=== PATIENT | male | born 1950 | race Caucasian/White ===

== ENCOUNTER 2018-08-28 08:35 | Emergency (ER) | payer OTHER ==
[2018-08-28] MEDS ORDERED: NS 0.9% 1000 ML** 1,000 ML IV ONE ×2 (09:11→09:55)
[2018-08-28 09:30] LABS: ABS Basophils 0.1 10^3/ul (0-0.2); ABS Eosinophils 0.1 10^3/ul (0-0.6); ABS Lymphocytes 1.5 10^3/ul (1.0-4.8); ABS Monocytes 0.7 10^3/ul (0-0.8); ABS Neutrophils 8.6 10^3/ul (1.5-7.7); Eosinophil % 0.8 %; Hematocrit 42 % (42-52); Hemoglobin 14.4 g/dL (14.0-18.0); Mean Corpuscular HGB Conc 34 g/dL (31-36); Mean Corpuscular Hemoglobin 31 pg (27-31); Mean Corpuscular Volume 91 fL (80-94); Mean Platelet Volume 6.8 fL (7.4-10.4); Platelet Count 305 10^3/uL (150-450); Red Blood Count 4.61 10^6 /uL (4.18-5.48); Red Cell Distribution Width 15 % (10-15)
[2018-08-28 09:38] LABS: Activated Partial Thrombo Time 36.5 seconds (26.0-38.0); INR 1.15 (0.82-1.09)
[2018-08-28 09:45] LABS: ALT 15 U/L (7-52); AST 14 U/L (13-39); Albumin 3.6 g/dL (3.2-5.2); Albumin/Globulin Ratio 1.1 (1-3); Alkaline Phosphatase 221 U/L (34-104); BUN/Creatinine Ratio 12.6 (8-20); Blood Urea Nitrogen 12 mg/dL (6-24); Calcium 9.1 mg/dL (8.6-10.3); Chloride 105 mmol/L (101-111); Creatine Kinase 29 U/L (10-223); EGFR Non-African American 79.3 (>60); Globulin 3.2 g/dL (2-4); Glucose 177 mg/dL (70-100); Magnesium 2.4 mg/dL (1.9-2.7); Potassium 3.6 mmol/L (3.5-5.0); Sodium 137 mmol/L (135-145); Total Protein 6.8 g/dL (6.4-8.9)
--- NOTE | 2018-08-28 09:46 | ED ---
Neurological HPI - HPI Summary HPI Summary: Pt is a 67 y/o M presenting to the ED brought in by EMS for seizures. LEVEL 5 CAVEAT: Pts full hx and physical are unobtainable d/t AMS. On the way here, the pt had a witnessed 30sec seizure which EMS gave 5mg Versed for. The pt was incontinent, and it is unknown if he hit his head. It is unknown who called EMS. No family or friends were on site with EMS. RN and pharmacy technician per diem in ED attempted to obtain pt's home medications, which pt does not know, and does not carry a list, however pt gets his care at the [facility], and no medication list was returned by the [facility]. Of note, in record pt had Dilantin toxicity in the past, but unknown if pt is still on Dilantin. Vital signs while in room: HR 121 bpm, BP 95/61, O2 sat 88% with good waveform. Home Medications Medication Instructions Recorded Confirmed Type Aspirin [Aspirin Adult Low Strengt] 81 mg PO 10/11/12 10/11/12 History Cetirizine* [ZyrTEC*] 10 mg PO BEDTIME 10/11/12 10/11/12 History Flunisolide (Nasal) [Flunisolide] 0.025 % NA BID 10/11/12 10/11/12 History Flunisolide NASAL (NF) [Nasalide 1 spray .SEE ORDER BID 10/11/12 10/11/12 History NASAL (NF)] Phenytoin CAP(*) [Dilantin ER 100 mg PO TID 10/11/12 10/11/12 History CAP(*)] Simvastatin TAB(NF) [Zocor(NF)] 80 mg PO QPM 10/11/12 10/11/12 History - History of Current Complaint Chief Complaint: EDSeizure Stated Complaint: SEIZURES PER EMS Hx Obtained From: EMS Hx From Patient Unobtainable Due To: Altered Mental Status Onset/Duration: Sudden Onset, Started hours ago, Resolved Timing: Intermittent Episodes Lasting: - seconds Onset Severity: Moderate Current Severity: None Seizure Severity: Moderate Number of Seizures: 2 - one at home reported, one witnessed by EMS. Neurological Deficit Location: Generalized Pain Intensity: 0 Pain Scale Used: 0-10 Numeric Episode Lasting: Seconds/Minutes - first unknown, second 30 sec; seizure, not syncope Frequency: Episodes x___ - 2 - 1 unwitnessed, 1 witnessed by EMS Seizure Character: Generalized Aggravating: Nothing Alleviating: Medication - versed 5mg by EMS for second seizure Associated Signs and Symptoms: Positive: Confusion - post ictal, and post versed , Seizure - x2, Incontinent Bladder/Bowel TPA Considered: No - seizure, not stroke - Allergy/Home Medications Allergies/Adverse Reactions: Allergies Allergy/AdvReac Type Severity Reaction Status Date / Time No Known Allergies Allergy Verified 10/11/12 09:41 PMH/Surg Hx/FS Hx/Imm Hx Previously Healthy: No Cardiovascular History: Reports: Hx Hypercholesterolemia, Hx Peripheral Vascular Disease Respiratory History: Reports: Other Respiratory Problems/Disorders - SMOKER Sensory History: Reports: Hx Hearing Aid, Hx Hearing Problem Neurological History: Reports: Hx CVA, Hx Seizures - Surgical History Surgery Procedure, Year, and Place: RIGHT SHOULDER CUFF SX 2004. RIGHT KNEE SX 1979. RIGHT INGUINAL HERNIA REPAIR 2004 Infectious Disease History: No Infectious Disease History: Denies: Traveled Outside the [place] in Last 30 Days - Family History Family History: LEVEL 5 CAVEAT: Pts full hx and physical are unobtainable d/t AMS. Later, when more alert, states cardiac disease. - Social History Lives: Alone Alcohol Use: Rare - stated after initial HPI, during re-eval Hx Substance Use: No Substance Use Type: Reports: None - denied in 2013 record, stated later in re- eval, and supported by neg Utox, except benzos (given by EMS) Hx Tobacco Use: Yes Smoking Status (MU): Heavy Every Day Tobacco Smoker - 30 yr hx in 2013 record, stated later in re-reval, and supported by PE. Type: Cigarettes Review of Systems - ROS Summary Review of Systems Summary: LEVEL 5 CAVEAT: Pts full hx and physical are unobtainable d/t AMS. Positive: Other - confusion Positive: incontinence Neurological: Other - seizure Psychological: Other - cooperative All Other Systems Reviewed And Are Negative: No Physical Exam - Summary Physical Exam Summary: Appearance: Ill-appearing, no pain distress, well-nourished Skin: Warm, yellow fingers consistent with heavy smoking, dry Head: Yellow mcdonnell around mouth, consistent with smoking atraumatic Eyes: Conjunctiva clear ENT: Normal inspection, no tongue biting noted. Neck: Supple, no nodes, no JVD, spines nontender Respiratory: Breath sounds diminished throughout, no respiratory distress Cardio: RRR, No murmur, pulses normal, brisk capillary refill Abdomen: Soft, nontender, multiple hernias in the umbilical region. Bowel sounds: Present Musculoskeletal: Strength Intact/ROM intact, clubbing, no calf tenderness, no edema. Psychological: Minimally communicative, difficult to assess Neuro: Alert, eyes open, answers some questions appropriately, doesnt follow commands, moves upper extremities well, some moverment of lower extremities, but then drifts off to sleep, muscle tone normal, no focal deficit Triage Information Reviewed: Yes Vital Signs On Initial Exam: Initial Vitals Temp Pulse Resp BP Pulse Ox 98.2 F 118 25 81/58 88 08/28/18 08:36 08/28/18 08:36 08/28/18 08:36 08/28/18 08:36 08/28/18 08:36 Vital Signs Reviewed: Yes Completion Of Physical Exam Limited Due To: Altered Mental Status - Jesus Coma Scale Best Eye Response: 4 - Spontaneous Best Motor Response: 5 - Purposeful Movement Best Verbal Response: 4 - Confused Coma Scale Total: 13 Diagnostics - Vital Signs Vital Signs Temp Pulse Resp BP Pulse Ox 08/28/18 09:33 123 25 95/61 87 08/28/18 09:11 114 21 102/74 97 08/28/18 09:08 96 08/28/18 09:00 120 26 95 08/28/18 08:53 122 29 104/60 93 08/28/18 08:46 119 22 95 08/28/18 08:44 100/63 08/28/18 08:36 98.2 F 118 25 81/58 88 - Laboratory Lab Results: Lab Results 08/28/18 08/28/18 08/28/18 Range/Units 09:11 09:17 09:17 WBC 11.0 H (3.5-10.8) 10^3/uL RBC 4.61 (4.18-5.48) 10^6 /uL Hgb 14.4 (14.0-18.0) g/dL Hct 42 (42-52) % MCV 91 (80-94) fL MCH 31 (27-31) pg MCHC 34 (31-36) g/dL RDW 15 (10-15) % Plt Count 305 (150-450) 10^3/uL MPV 6.8 L (7.4-10.4) fL Neut % (Auto) 78.4 % Lymph % (Auto) 14.0 % Hampton % (Auto) 6.3 % Eos % (Auto) 0.8 % Baso % (Auto) 0.5 % Absolute Neuts (auto) 8.6 H (1.5-7.7) 10^3/ul Absolute Lymphs (auto) 1.5 (1.0-4.8) 10^3/ul Absolute Monos (auto) 0.7 (0-0.8) 10^3/ul Absolute Eos (auto) 0.1 (0-0.6) 10^3/ul Absolute Basos (auto) 0.1 (0-0.2) 10^3/ul Absolute Nucleated RBC 0.0 10^3/ul Nucleated RBC % 0.0 INR (Anticoag Therapy) 1.15 H (0.82-1.09) APTT 36.5 (26.0-38.0) seconds Sodium 137 (135-145) mmol/L Potassium 3.6 (3.5-5.0) mmol/L Chloride 105 (101-111) mmol/L Carbon Dioxide Pending Anion Gap Pending BUN 12 (6-24) mg/dL Creatinine 0.95 (0.67-1.17) mg/dL Est GFR ( Amer) 96.0 (>60) Est GFR (Non-Af Amer) 79.3 (>60) BUN/Creatinine Ratio 12.6 (8-20) Glucose 177 H (70-100) mg/dL Calcium 9.1 (8.6-10.3) mg/dL Magnesium 2.4 (1.9-2.7) mg/dL Total Bilirubin 0.30 (0.2-1.0) mg/dL AST 14 (13-39) U/L ALT 15 (7-52) U/L Alkaline Phosphatase 221 H (34-104) U/L Total Creatine Kinase 29 (10-223) U/L Troponin I Pending Total Protein 6.8 (6.4-8.9) g/dL Albumin 3.6 (3.2-5.2) g/dL Globulin 3.2 (2-4) g/dL Albumin/Globulin Ratio 1.1 (1-3) TSH Pending Serum Alcohol Pending Result Diagrams: 08/28/18 09:17 08/28/18 12:16 Lab Statement: Any lab studies that have been ordered have been reviewed, and results considered in the medical decision making process. - CT Brain CT CT Interpretation Completed By: Radiologist Summary of CT Findings: 1. NO EVIDENCE FOR ACUTE INTRACRANIAL ABNORMALITY. 2. FOCAL AREA OF DECREASED DENSITY IN THE POSTERIOR LEFT PARIETAL LOBE SUGGESTIVE OF ENCEPHALOMALACIA WHICH APPEARS SLIGHTLY MORE PROMINENT THAN ON THE PRIOR STUDY. RECOMMEND CLINICAL CORRELATION. ED physician has reviewed this report. - EKG 0851 Cardiac Rate: Tachycardia - 121bpm EKG Rhythm: Sinus Tachycardia ST Segment: Non-Specific Ectopy: None EKG Comparison: No Significant Change - since 10/11/12 Summary of EKG Findings: An EKG at 0851 shows sinus tachycardia at 121bpm, with nml AV/IV CT, nml QTc, and nml axis. No acute changes. No change since 10/11/12. ED MD has reviewed and interpreted this EKG. Re-Evaluation - Re-Evaluation 1st re-eval Re-Evaluation Time: 10:38 Change: Improved Comment: Pt is much more conscious now and able to give more history. He states he has not had a seizure in years because of Dilantin, but they took him off of it a couple of years back. After the first seizure this morning, he called EMS, because he had an aura that he would have another seizure. He states he awoke fully after the seizure. He currently denies STEVENS, dizziness, CP, SOB, abd pain, n /v, leg pain, edema, dysuria, burning, cough, and fever. He last drank alcohol a couple of months ago and does not use drugs, smokes more than a pack a day. He also has hernias, and he has Fhx of cardiac disease. He state that he has been off dilantin for years, currently on no anti-seizure medication. Vital signs on re-eval: HR 110bpm, BP 98/72, SaO2 91% on face mask. Course/Dx - Course Course Of Treatment: Pt is a 67 y/o M presenting to the ED brought in by EMS for seizures. LEVEL 5 CAVEAT: Pts full hx and physical are unobtainable d/t AMS. On the way here, the pt had a witnessed 30sec seizure which EMS gave 5mg Versed for. The pt was incontinent, and it is unknown if he hit his head. Vital signs while in room: HR 121 bpm, BP 95/61, O2 sat 88% with good waveform. An EKG at 0851 shows sinus tachycardia at 121bpm, with nml AV/IV CT, nml QTc, and nml axis. No acute changes. No change since 10/11/12. ED MD has reviewed and interpreted this EKG. [address] Jon about the pts present condition who will come to consult on him. 951 - I spoke with Dr. Newsome about the pt's present condition, abnormal vital signs, recurrent seizures (two in one day) who will be accepting the pt to [facility] with a dx of uncontrolled seizures and abnormal vital signs, pending neuro evaluation, CT brain, and continued hydration and observation in the ED. Made aware at 1000 that the patient's lactic acid is 10.2, consistent with seizure. CK is normal. Pts lab results show WBC of 11.0, INR of 1.15, CO2 of 12, Anion Gap of 20, Alkaline Phosphate of 221, and TSH of 6.02. First troponin is 0.00, lactate of 10.2. 1034 - Dr. Newsome would like to wait to admit the patient until neurology evaluates him. As of 1037, pt is much more conscious and able to give more history. He states he has not had a seizure in years because of Dilantin, but ' they" took him (unknown neurologist, [facility] or [facility]) off of it a couple of years back. After the first seizure this morning, he called EMS, so he awoke fully. No concern for status epilepticus. He currently denies STEVENS, dizziness, CP, SOB, abd pain, n/v, leg pain, edema, dysuria, burning, cough, and fever. He last drank alcohol a couple of months ago and does not use drugs. He also has umbilical hernias, and he has Fhx of cardiac disease. Vital signs on re-eval: HR 110bpm, BP 98/72, SaO2 91% on face mask. Pt was hydrated aggressively in the ED with 2L NS for tachycardia, and hypotension in the ED,and responded with improved VS. Pt with no hx COPD reported, but with heavy smoking evident by physical exam, suspect undiagnosed COPD, therefore low O2 sats less concerning. Serum lactate improved with no further seizures, and hydration. Brain CT shows : 1. NO EVIDENCE FOR ACUTE INTRACRANIAL ABNORMALITY. 2. FOCAL AREA OF DECREASED DENSITY IN THE POSTERIOR LEFT PARIETAL LOBE SUGGESTIVE OF ENCEPHALOMALACIA WHICH APPEARS SLIGHTLY MORE PROMINENT THAN ON THE PRIOR STUDY. RECOMMEND CLINICAL CORRELATION. As of 1250, the pts lactic acid has gone down to 1.4, his CO2 has gone up to 22, and his Anion gap has decreased to 6. VS improved with minimal tachycardia, and BP above 90 systolic. O2 sats in range for COPD. Pt was loaded with Keppra 1000mg per Dr. Jon, and is advised to start Keppra 500mg bid and f/u with [facility]. The pt will be d/c'ed with dx of uncontrolled seizures and chronic respiratory failure with hypoxia. - Differential Dx Differential Diagnoses Neuro: Positive: Cerebrovascular Accident, Drug Toxicity , Intracranial Bleed, Metabolic Abnormality, Seizure Disorder - Diagnoses Provider Diagnoses: Uncontrolled seizures, Chronic respiratory failure with hypoxia, Recurrent seizures, Seizure disorder as sequela of cerebrovascular accident, Dehydration, Elevated lactic acid level - Physician Notifications Discussed Care Of Patient With: Eleno Jon Time Discussed With Above Provider: 09:40 - start Keppra, follow up with [facility] neurology Instructed by Provider To: MD Will See In ED - Critical Care Time Critical Care Time: 30-74 min - 30min Discharge - Sign-Out/Discharge Documenting (check all that apply): Patient Departure - home Patient Received Moderate/Deep Sedation with Procedure: No - Discharge Plan Condition: Stable Disposition: HOME Prescriptions: levETIRAcetam TAB* [Keppra TAB*] 500 mg PO BID #180 tab Patient Education Materials: Recurrent Seizures in Adults (ED) Referrals: Simon Mata MD [Primary Care Provider] - 2 Days Additional Instructions: Have follow up with neurology at the [facility] or at [facility]. Start the Keppra medication twice a day to prevent seizures. Return to the ER if you have new or worsening symptoms. - Billing Disposition and Condition Condition: STABLE Disposition: Home - Attestation Statements Document Initiated by Scribe: Yes Documenting Scribe: Helen Gottlieb Provider For Whom Dionic[employer] is Documenting (Include Credential): Dr. Suzy Valerio MD. Scribe Attestation: Helen Webber, sia for Dr. Suzy Valerio MD. on 08/29/18 at 1626. Scribe Documentation Reviewed: Yes Provider Attestation: The documentation as recorded by the scribe, Helen Gottlieb accurately reflects the service I personally performed and the decisions made by me, Dr. Suzy Valerio MD. Status of Scribe Document: Viewed Consult Consult: [address] Jon about the pts present condition who will come to consult him. 8842 - I spoke with Dr. Newsome who will be accepting the pt to [facility] with dx of uncontrolled seizures. 0252 - Dr. Newsome would like to wait for the neurology evaluation.
[2018-08-28 10:23] LABS: Alcohol < 10 mg/dL (<10); Anion Gap 20 mmol/L (2-11); CO2 Carbon Dioxide 12 mmol/L (22-32); TSH (Thyroid Stimulating Horm) 6.02 mcIU/mL (0.34-5.60)
[2018-08-28 10:44] LABS: Phenytoin < 2.5 mcg/mL (10-20)
[2018-08-28] MEDS ORDERED: levETIRAcetam 1000 MG IVPREMIX* 100 ML BAG IV ONE (11:00)
[2018-08-28 11:51] LABS: Urine Appearance Clear; Urine Bilirubin Negative (Negative); Urine Blood Negative (Negative); Urine Color Yellow; Urine Glucose Negative (Negative); Urine Ketones Negative (Negative); Urine Nitrite Negative (Negative); Urine Protein Negative (Negative); Urine Specific Gravity 1.009 (1.010-1.030); Urine Urobilinogen Negative (Negative)
[2018-08-28 12:43] LABS: Urine Benzodiazepine Screen Presumptive Positive (None Detect); Urine Opiates Screen None Detected (None Detect)
[2018-08-28 12:44] LABS: BUN/Creatinine Ratio 11.6 (8-20); Calcium 8.4 mg/dL (8.6-10.3); EGFR African American 107.7 (>60); Potassium 3.5 mmol/L (3.5-5.0)
--- NOTE | 2018-08-28 13:50 | CONS ---
NEUROLOGY CONSULTATION NOTE: DATE OF CONSULT: 08/28/18 - EMERGENCY DEPT CONSULTING PROVIDER: Dr. Suzy Valerio. REASON FOR CONSULT: Seizure. CHIEF COMPLAINT: Seizures. HISTORY OF PRESENT ILLNESS: Mr. 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 The patient woke up in a normal state of health. At approximately 8 a.m., he developed warning symptoms of flashing light. He stated that he recalls this as his prodromal symptoms before having a seizure. He immediately called his landlord, who called EMS. EMS arrived at his apartment to find the door open and the patient had a seizure. En route, the patient had another seizure that lasted approximately 30 seconds. He was given Versed 5 mg IV. He required 2 L of oxygen mask. He maintained his airway. The patient was postictal initially for approximately 15 to 30 minutes. When I assessed the patient, he was awake and oriented. He stated that he had a seizure. His last seizure was approximately 3 years ago. He used to take phenytoin 50 mg 2 tablets 3 times a day for a total dose of 300 mg daily. However, 2 years ago, his surgeon(s) informed him that he does not need to be on phenytoin. The patient stated that his last seizure was 3 years ago and he has not had any seizures off phenytoin. He did not follow up with neurologist. His primary care doctor [facility]. The patient had 1 unwitnessed and 1 witnessed seizure today. He is unable to provide further history. He did inform me that he was incontinent, but did not have any tongue biting. Again, his seizures all initiate usually with prodromal visual obscuration and scotomas followed by generalized loss of consciousness and convulsion. Seizure risk factors are stroke, for which he is unable to tell me exactly what year, with residual right-sided deficits and visual impairment. He has no history of meningitis or encephalitis. He has no history of head injury. There is no history of brain surgeries or febrile seizures. PAST MEDICAL HISTORY: Dyslipidemia, seizure disorder, left MCA vascular territory ischemic stroke, peripheral vascular disease. The patient also has a history of tobacco abuse, seasonal allergy, and history of phenytoin toxicity in 2012 where he presented with a Dilantin level greater than 40. The Dilantin level was slowly increased during that time period. MEDICATIONS: 1. Cetirizine. 2. Aspirin 81 mg p.o. daily. 3. Simvastatin, unclear if the dose is actually 80 mg p.o. at night. 4. Flunisolide, the patient does not take phenytoin. FAMILY HISTORY: No family history of stroke or seizure. SOCIAL HISTORY: The patient is a . He smokes 1 pack per day for over 40 years. He denied any alcohol use. He is not . REVIEW OF SYSTEMS: A 14-point review of systems was obtained and otherwise negative, except for what was mentioned in the HPI. PHYSICAL EXAMINATION: Vitals: Temperature of 98.2, pulse of 118, respiratory rate of 25, oxygen saturation of 88 on room air, blood pressure initially was 81 /58; however, the blood pressure improved to 90/72 and heart rate is reduced to 113. General: The patient is disheveled, poorly groomed. He is alert and cooperative. Head: Normocephalic, atraumatic. Eyes: Conjunctivae/corneas are clear. Neck: Supple and symmetric with no carotid bruit. Lungs are clear to auscultation bilaterally. There is no unlabored breathing. Cardiovascular: Regular rate and rhythm with normal S1, S2. Extremities: Normal range of motion with no cyanosis. Skin: No skin lacerations or lesions. Psych: Affect is broad and normal mood. Neurological Examination: Mental status: Awake, alert, and oriented to person; place; time; and general circumstances. Speech and language including expression, naming, and repetition were assessed and found to be normal. Cranial Nerves: Normal confrontation testing. He has got visual field deficits on the right side. Pupils are midrange and reactive. Right homonymous hemianopia. Sensation is intact in the forehead, cheeks, and jaw region bilaterally. There is no facial asymmetry. He is able to hear throughout the history process. Symmetrical palate elevation. Normal strength against shoulder resistance. Tongue is symmetrical and midline with no atrophy or fasciculation. Motor Examination: No abnormal movements or pronator drift. Normal bulk and tone throughout. He has 4+/5 strength on shoulder abduction, elbow extension, wrist extension, and hip flexion on the right; 5/5 strength on the left. Reflexes, Right/Left: Brachioradialis 1/1, biceps 2/1, triceps 2/1, patella 1/1, ankle 0/0, plantar flexor/flexor. Sensation is intact to light touch throughout. Coordination: Normal finger-to- nose and rapid alternating movements bilaterally. Gait: Wide based, cautious, but no ataxia. He barely required 1-person assist to ambulate. LABS/IMAGING/OTHER DIAGNOSTIC STUDIES: CT head without contrast was personally reviewed. The CT of the head completed 08/28/18 was compared to a previous study in 2013. There is a focal area of decreased density in the posterior left parietal lobe suggestive of encephalomalacia, which appears more prominent than the prior study. Laboratory Data: WBC of 11, hemoglobin of 14, hematocrit of 42, platelet count of 305. INR is 1.15. ABG was obtained with a pH of 7.36, pCO2 of 31, pO2 of 71. Sodium of 137, potassium of 3.6, chloride of 105, carbon dioxide of 12, BUN of 12, anion gap of 20, glucose of 177, lactic acid of 10. TSH of 6.02. Phenytoin less than 2.54. Alcohol level less than 10. Magnesium level was checked and was 2.4. ASSESSMENT AND RECOMMENDATIONS: Mr. Alcides Ryan is a 67-year-old man with history of left middle cerebral artery vascular territory ischemic stroke, who is on aspirin and statin therapy, who also has a history of epilepsy; not on any antiseizure medications recently, who presented with seizures. 1. Breakthrough seizures - the patient returned to baseline. He is able to ambulate. The seizure is likely due to being off antiseizure medications. I suspect the patient has a complex partial seizure with secondary generalization emanating from the left frontoparietal stroke that he has had in the past. He has not had any new weakness or visual disturbance. He is aware of his deficits on the right side including his visual deficits. 2. Remote history of left middle cerebral artery vascular territory stroke - the CT did show evidence of progression of the stroke with evolution, but this is a chronic finding given that it is showing encephalomalacia. The patient is on aspirin therapy. He does not report any new neurological deficits on the right side. 3. Dyslipidemia. 4. Tobacco abuse - counseling was provided. The patient does not want to quit smoking. 5. Mild hypoxia - deferred to the primary team. RECOMMENDATIONS: Load with levetiracetam 1000 mg IV x1 and continue at dose of 500 mg p.o. twice daily starting tonight. Education and counseling was provided to the patient. He was advised to make sure to take his antiseizure medications regularly. [facility] 4 to 6 weeks. He was encouraged to come back to the ED if he has any new neurological symptoms such as weakness, headaches, or recurrence of seizures. Please obtain repeat lactic acid level to make sure it is trending down. If he is hemodynamically stable, he is cleared for discharge from the neurology standpoint. The side effects of levetiracetam were discussed, which include increased irritability, agitation, and drowsiness. The patient understands the side effects. If he develops any of these side effects, restarting his phenytoin would be another option. Smoking cessation counseling was discussed with the patient. Again, he is not ready to quit. We discussed seizure precautions, which include but are not limited to no driving, no operating heavy machinery, he cannot be climbing roof tops or ladders, or swim unattended. He verbalized understanding. I discussed these findings with Dr. Valerio. Again, discharge decision making will be deferred to the ER. [id number]/[facility] #: [id number] [place]
[2018-08-28 14:23] VITALS: BP 121/81
--- NOTE | 2018-08-28 20:46 | CONS ---
CC: Dr. Simon Mata; Dr. Valerio * CONSULTATION REPORT: DATE OF CONSULT: 08/28/18 - EMERGENCY DEPT TIME OF EVALUATION: 11 a.m. PRIMARY CARE PROVIDER: Dr. Simon Mata. REQUESTING EMERGENCY ROOM PHYSICIAN: Dr. Valerio. CHIEF COMPLAINT: Seizure. HISTORY OF PRESENT ILLNESS: Mr. Ryan is a 67-year-old male with a past medical history of hyperlipidemia, seizure disorder, left MCA stroke, peripheral vascular disease, tobacco abuse who was brought in to the emergency room with seizures. When the case was initially presented by the emergency room provider, not much information was available and he was hypotensive and hypoxic. By the time I evaluated the patient, he was alert, awake, oriented x3 and able to provide information. The patient states that he woke up and was feeling well and then he developed visual symptoms that are usually a warn that he was going to have a seizure. He called 911 and EMS arrived and found the patient having a seizure. En route, the patient had another seizure and received Versed 5 mg IV. The patient has a known history of seizure disorder and tells me that his Dilantin was discontinued by a different "[place] doctor" more than a year ago. He had no other complaints and was feeling close to his baseline at the time of my evaluation. PAST MEDICAL HISTORY: 1. Hyperlipidemia. 2. Seizure disorder. 3. Left MCA ischemic stroke. 4. Peripheral vascular disease. 5. Tobacco abuse. 6. Admission in 2013 due to phenytoin toxicity. MEDICATIONS: 1. Cetirizine. 2. Aspirin. 3. Simvastatin. ALLERGIES: No known drug allergies. FAMILY HISTORY: Reviewed, noncontributory. SOCIAL HISTORY: The patient is a smoker of 1 pack per day for 40 years. Denies alcohol and drug use. REVIEW OF SYSTEMS: A 14-point review of systems was performed and all the pertinent negative and positive findings are in the HPI. PHYSICAL EXAM: Vital Signs: Temperature 98.9, heart rate is 90, respiratory rate is 16, oxygen saturation is 99% on room air, blood pressure is 121/81. General: The patient is an elderly gentleman with a disheveled appearance, sitting up in the stretcher, in no acute distress. CVS: Normal S1, S2. Regular rate and rhythm. Chest: Breath sounds present bilaterally with no added sounds. Neuro: He is alert and oriented x3. Able to move all 4 extremities. Face is symmetric. Cranial nerves II through XII are grossly intact. DIAGNOSTIC STUDIES/LABORATORY DATA: Laboratory tests included a CBC that showed WBC of 11, hemoglobin 14.4, hematocrit of 42, platelets of 305 with 78% neutrophils. INR was 1.1. ABG showed a pH of 7.36, CO2 of 41, pO2 of 71, bicarb 19.5. Initial chemistry showed a sodium of 137, potassium 3.6, chloride 105, bicarb of 12, anion gap 20, BUN of 12, creatinine of 0.85, glucose of 177, lactic acid is 10.2, calcium is 9.1. Repeat labs done at 12:16 had shown resolution of his lactic acidosis. Urinalysis was negative. Phenytoin level was less than 2.5 and his U-Tox is positive only for benzos. CT of the brain without contrast showed no evidence for acute intracranial abnormality. Only a focal area of decreased density in the posterior left parietal lobe suggestive of encephalomalacia, which appears slightly more prominent than on the prior study. ASSESSMENT AND PLAN: Mr. Ryan is a 67-year-old male with a past medical history of hyperlipidemia, seizure disorder, cerebrovascular accident, tobacco abuse who presented to the emergency room after 2 breakthrough seizures today in the setting of stopping phenytoin therapy more than a year ago. At this point, his workup is negative and his seizure is probably related to the fact that he is not taking the medication anymore. Discussed the case with Dr. Valerio and the plan is to have Neurology evaluate the patient and if Dr. Jon feels it is necessary for the patient should be admitted, the hospitalist service would be happy to admit the patient to the hospital, but at this point, the impression is that he likely needs to be started on phenytoin again and would be able to follow up with Neurology as outpatient. TIME SPENT: Approximately 45 minutes was spent with the patient's interview, medical records review, physical examination to complete this consultation, more than half of this time was spent [id number] with the patient in coordination of care. [id number]/[facility] #: [id number] ELMA
--- NOTE | 2018-08-29 17:08 | ED ---
Progress - Progress Note Progress Note: LATE ENTRY FOR 08/28/182019, WRITTEN 08/29/181706. ASSISTED BY CHARGE NURSE MARCELINO WITH THESE EFFORTS. 2019: Pt called multiple times after discharge for change in pharmacy. Unable to change pt's pharmacy at the time of his calls, due to critical pt's in the department ([facility] with TPA, sepsis with hypoxemia, hematoma after dialysis going to [place], pt with nephrostomy malfunction (Possible transfer, required procedure)).) Original pharmacy chosen after pt unable to decide a pharmacy was [facility] pharmacy for pt's ease of obtaining, and possible ease of pt being able to get recovery of cost of medication by the [place], due to being hospital based. Unable to prescribe to [place] pharmacy with Dr. First wells, confirmed with social worked Sonya (telephone conversation, recalled name may be incorrect). [facility] pharmacy closed at time pt attempted to picker feeder RX. Next pharmacy sent was [facility] ([facility]) on [address] in [place], where Rx remains. Pt had also requested [facility] later after discharge. Unable to change RX to these pharmacies as explained above due to critical pts in the department. At time able to call for pt, only [facility] still open. Attempted to call pt 3 times at this time, no answer. RX remains at [facility] on [address] in [place]. Pt was loaded with Keppra in ED. Was supposed to have a dose of Keppra tonight. Hopefully pt will obtain Rx tomorrow 08/29/18 and will not have recurrent seizure tonight, and [facility] Enma DESOUZA MD 08/29/181706. Re-Evaluation - Re-Evaluation 1st re-eval Re-Evaluation Time: 10:38 Change: Improved Comment: Pt is much more conscious now and able to give more history. He states he has not had a seizure in years because of Dilantin, but they took him off of it a couple of years back. After the first seizure this morning, he called EMS, because he had an aura that he would have another seizure. He states he awoke fully after the seizure. He currently denies STEVENS, dizziness, CP, SOB, abd pain, n /v, leg pain, edema, dysuria, burning, cough, and fever. He last drank alcohol a couple of months ago and does not use drugs, smokes more than a pack a day. He also has hernias, and he has Fhx of cardiac disease. He state that he has been off dilantin for years, currently on no anti-seizure medication. Vital signs on re-eval: HR 110bpm, BP 98/72, SaO2 91% on face mask. Course/Dx - Course Course Of Treatment: Pt is a 67 y/o M presenting to the ED brought in by EMS for seizures. LEVEL 5 CAVEAT: Pts full hx and physical are unobtainable d/t AMS. On the way here, the pt had a witnessed 30sec seizure which EMS gave 5mg Versed for. The pt was incontinent, and it is unknown if he hit his head. Vital signs while in room: HR 121 bpm, BP 95/61, O2 sat 88% with good waveform. An EKG at 0851 shows sinus tachycardia at 121bpm, with nml AV/IV CT, nml QTc, and nml axis. No acute changes. No change since 10/11/12. ED MD has reviewed and interpreted this EKG. [address] Jon about the pts present condition who will come to consult on him. 0952 - I spoke with Dr. Newsome about the pt's present condition, abnormal vital signs, recurrent seizures (two in one day) who will be accepting the pt to [facility] with a dx of uncontrolled seizures and abnormal vital signs, pending neuro evaluation, CT brain, and continued hydration and observation in the ED. Made aware at 1000 that the patient's lactic acid is 10.2, consistent with seizure. CK is normal. Pts lab results show WBC of 11.0, INR of 1.15, CO2 of 12, Anion Gap of 20, Alkaline Phosphate of 221, and TSH of 6.02. First troponin is 0.00, lactate of 10.2. 1034 - Dr. Newsome would like to wait to admit the patient until neurology evaluates him. As of 1038, pt is much more conscious and able to give more history. He states he has not had a seizure in years because of Dilantin, but ' they" took him (unknown neurologist, [facility] or [place]) off of it a couple of years back. After the first seizure this morning, he called EMS, so he awoke fully. No concern for status epilepticus. He currently denies STEVENS, dizziness, CP, SOB, abd pain, n/v, leg pain, edema, dysuria, burning, cough, and fever. He last drank alcohol a couple of months ago and does not use drugs. He also has umbilical hernias, and he has Fhx of cardiac disease. Vital signs on re-eval: HR 110bpm, BP 98/72, SaO2 91% on face mask. Pt was hydrated aggressively in the ED with 2L NS for tachycardia, and hypotension in the ED,and responded with improved VS. Pt with no hx COPD reported, but with heavy smoking evident by physical exam, suspect undiagnosed COPD, therefore low O2 sats less concerning. Serum lactate improved with no further seizures, and hydration. Brain CT shows : 1. NO EVIDENCE FOR ACUTE INTRACRANIAL ABNORMALITY. 2. FOCAL AREA OF DECREASED DENSITY IN THE POSTERIOR LEFT PARIETAL LOBE SUGGESTIVE OF ENCEPHALOMALACIA WHICH APPEARS SLIGHTLY MORE PROMINENT THAN ON THE PRIOR STUDY. RECOMMEND CLINICAL CORRELATION. As of 1250, the pts lactic acid has gone down to 1.4, his CO2 has gone up to 22, and his Anion gap has decreased to 6. VS improved with minimal tachycardia, and BP above 90 systolic. O2 sats in range for COPD. Pt was loaded with Keppra 1000mg per Dr. Jon, and is advised to start Keppra 500mg bid and f/u with [place] and [place] neurology. The pt will be d/c'ed with dx of uncontrolled seizures and chronic respiratory failure with hypoxia. - Diagnoses Provider Diagnoses: Uncontrolled seizures, Chronic respiratory failure with hypoxia, Recurrent seizures, Seizure disorder as sequela of cerebrovascular accident, Dehydration, Elevated lactic acid level - Provider Notifications Time Discussed With Above Provider: 09:40 - start Keppra, follow up with [place] neurology Instructed by Provider To: Will See In ED - Critical Care Time Critical Care Time: 30-74 min - 30min Discharge - Sign-Out/Discharge Documenting (check all that apply): Post-Discharge Follow Up - pt attempting to obtain RX Patient Received Moderate/Deep Sedation with Procedure: No - Discharge Plan Condition: Stable Disposition: HOME Prescriptions: levETIRAcetam TAB* [Keppra TAB*] 500 mg PO BID #180 tab Patient Education Materials: Recurrent Seizures in Adults (ED) Referrals: Simon Mata MD [Primary Care Provider] - 2 Days Additional Instructions: [facility] at [facility]. Start the Keppra medication twice a day to prevent seizures. Return to the ER if you have new or worsening symptoms. - Billing Disposition and Condition Condition: STABLE Disposition: Home
== END 2018-08-28 14:23 | disposition home or self-care (01) ==
LOC: ED 08:35
DX: G40.909 Epilepsy, unspecified, not intractable, without status epilepticus (principal); R74.0 Nonspecific elevation of levels of transaminase and lactic acid dehydrogenase [LDH]; E86.0 Dehydration; J96.11 Chronic respiratory failure with hypoxia; Z79.82 Long term (current) use of aspirin; R41.82 Altered mental status, unspecified; I73.9 Peripheral vascular disease, unspecified; Z86.73 Personal history of transient ischemic attack (TIA), and cerebral infarction without residual deficits; F17.210 Nicotine dependence, cigarettes, uncomplicated
CPT/HCPCS: 36415; 70450; 80048; 80053; 80185; 80307; 80320; 81003; 82550; 82803; 83605; 83735; 84443; 84484; 85025; 85610; 85730; 93005; 96361; 96365; 99284; G0480; J1953